=== PATIENT | male | born 1995 | race Asian ===

== ENCOUNTER 2019-01-30 21:52 | Emergency (ER) | payer SELFPAY ==
[2019-01-30] MEDS ORDERED: Acetaminophen 500 MG TAB ONE (22:25)
--- NOTE | 2019-01-30 22:38 | RAD ---
PORTABLE CHEST ONE VIEW: 01/30/19 at 10:15 p.m. HISTORY: Seizures. FINDINGS: The heart size is normal. The lungs are expanded without focal areas of consolidation, pneumothoraces , or pleural effusions. IMPRESSION: No acute process. POS: [facility]
[2019-01-30 22:53] LABS: #Basophils 0.1 thou/uL (0.0-0.2); #Eosinphils 0.1 thou/uL (0.0-0.7); #Lymphocytes 2.8 thou/uL (1.20-3.40); #Monocytes 0.5 thou/uL (0.11-0.59); #Neutrophils 2.4 thou/uL (1.40-6.50); %Eosinophils 2.4 % (0.0-10.0); %Lymphocytes 47.2 % (21.0-51.0); %Monocytes 8.9 % (0.0-10.0); %Neutrophils 40.4 % (42.0-75.0); Hemoglobin 17.1 g/dL (14.0-18.0); Mean Corpuscular HGB CONC 33.8 g/dL (32.0-36.0); Mean Corpuscular Hemoglobin 31.1 pg (27.0-31.0); Platelet Count 226 thou/uL (130-400); RBC Distribution Width 12.4 % (11.5-14.5)
--- NOTE | 2019-01-30 22:57 | CT ---
CT BRAIN WITHOUT CONTRAST: 01/30/19 HISTORY: Seizure. FINDINGS: No evidence of acute infarct, hemorrhage, midline shift, or abnormal extra-axial fluid collections ar e seen. The ventricular size is normal and the basilar cisterns patent. The bony calvarium is intact . The visualized paranasal sinuses and mastoid air cells are well aerated. IMPRESSION: No CT evidence of acute intracranial process. POS: [facility]
[2019-01-30 23:14] LABS: ALT (SGPT) 12 U/L (8-55); AST (SGOT) 13 U/L (5-34); Alkaline Phosphatase 65 U/L (40-150); Anion Gap 12 mmol/L (10-20); BUN (Urea Nitrogen) 11 mg/dL (8.9-20.6); Bilirubin, Total 0.5 mg/dL (0.2-1.2); Calc. Creatinine Clearance 0 mL/min (70-130); Calcium 9.5 mg/dL (7.8-10.44); Carbon Dioxide 27 mmol/L (22-29); Chloride 104 mmol/L (98-107); Estimated GFR-MDRD Greater than 90; Globulin 2.1 g/dL (2.4-3.5); Glucose 96 mg/dL (70-105); Potassium 4.3 mmol/L (3.5-5.1); Protein, Total 7.1 g/dL (6.0-8.3); Sodium 139 mmol/L (136-145)
== END 2019-01-30 23:50 | disposition home or self-care (01) ==
LOC: ERS 21:52
DX: R55 Syncope and collapse (principal); Z87.891 Personal history of nicotine dependence; F31.9 Bipolar disorder, unspecified; F90.9 Attention-deficit hyperactivity disorder, unspecified type
CPT/HCPCS: 36415; 70450; 71045; 80053; 84484; 85025; 93005; 96360